=== PATIENT | female | born 1990 | race Caucasian/White ===

== ENCOUNTER 2016-05-23 17:52 | Emergency (ER) | payer OTHER ==
[2016-05-23 18:25] VITALS: BP 116/93
--- NOTE | 2016-05-23 18:37 | UC ---
Throat Pain/Nasal Barry HPI - HPI Summary HPI Summary: pt c/o nasal congestion, sore throat, "loss of voice" cough, generalized malaise X 1 week. - History of Current Complaint Chief Complaint: UCRespiratory Stated Complaint: COUGH,ST Time Seen by Provider: 05/23/16 18:21 Hx Obtained From: Patient Hx Last Menstrual Period: 11/08/13 ?: No Onset/Duration: Gradual Onset, Lasting Days, Worse Since - onsetr Severity: Mild Cough: Nonproductive Associated Signs & Symptoms: Positive: Other - sore throat - Allergies/Home Medications Allergies/Adverse Reactions: Allergies Allergy/AdvReac Type Severity Reaction Status Date / Time No Known Allergies Allergy Verified 05/23/16 18:21 Home Medications: Home Medications Ferrous Sulfate [Feosol] 65 mg PO DAILY 05/23/16 [History Confirmed 05/23/16] Norethindrone (Contraceptive) [Faby] 0.35 mg PO DAILY 05/23/16 [History Confirmed 05/23/16] Omeprazole CAP* [Prilosec CAP* 20 MG] 20 mg PO DAILY PRN 05/23/16 [History Confirmed 05/23/16] PMH/Surg Hx/FS Hx/Imm Hx Previously Healthy: Yes Endocrine History Of: Denies: Diabetes, Thyroid Disease Cardiovascular History Of: Denies: Cardiac Disorders Respiratory History Of: Denies: Asthma - Surgical History Surgical History: Yes Surgery Procedure, Year, and Place: D&C, 03/2013 - Family History Known Family History: Positive: Cardiac Disease - Social History Lives: With Family Alcohol Use: Rare Substance Use Type: None Smoking Status (MU): Never Smoked Tobacco Household Exposure Type: Cigarettes - Immunization History Most Recent Influenza Vaccination: Not the Season Review of Systems Constitutional: Fatigue Skin: Negative Eyes: Negative ENT: Sore Throat, Other - laryngitis Respiratory: Cough Cardiovascular: Negative Gastrointestinal: Negative Genitourinary: Negative Motor: Negative Neurovascular: Negative Musculoskeletal: Negative Neurological: Negative Psychological: Negative All Other Systems Reviewed And Are Negative: Yes Physical Exam Triage Information Reviewed: Yes Appearance: Ill-Appearing Vital Signs: Initial Vital Signs Temp 97.9 F 05/23/16 18:17 Pulse 64 05/23/16 18:17 Resp 16 05/23/16 18:17 BP 116/93 05/23/16 18:17 Pulse Ox 100 05/23/16 18:17 Vital Signs Reviewed: Yes ENT Exam: Other ENT: Positive: Pharyngeal erythema, Nasal congestion, Other: - palatal petechiae Neck exam: Normal Respiratory Exam: Normal Cardiovascular Exam: Normal Musculoskeletal Exam: Normal Neurological Exam: Normal Psychological Exam: Normal Skin Exam: Normal Throat Pain/Nasal Course/Dx - Differential Dx/Diagnosis Differential Diagnosis/HQI/PQRI: Influenza, Pharyngitis, Tonsillitis, URI, Other - laryngitis Provider Diagnoses: bronchitis. pharyngitis Discharge - Discharge Plan Condition: Stable Disposition: HOME Prescriptions: Azithromyxin BARNEY (NF) [Z-Barney (Zithromax) 250 mg tabs #6] 2 tab PO .TODAY, THEN 1 DAILY #6 tab Benzonatate CAP* [Tessalon CAP*] 100 mg PO TID PRN #15 cap PRN Reason: Cough Patient Education Materials: Laryngitis (ED), Acute Bronchitis (ED) Referrals: [facility] [place] [facility] [Outside]
== END 2016-05-23 18:45 | disposition home or self-care (01) ==
LOC: UCCORT 17:52
DX: J40 Bronchitis, not specified as acute or chronic (principal); J02.9 Acute pharyngitis, unspecified; Z77.22 Contact with and (suspected) exposure to environmental tobacco smoke (acute) (chronic)
CPT/HCPCS: 99212; G0463